=== PATIENT | female | born 1995 | race Caucasian/White ===

== ENCOUNTER 2023-08-04 12:44 | Outpatient (AMB) | payer OTHER, SELFPAY ==
--- NOTE | 2023-08-04 12:52 | MHC.OFFVIS ---
Intake Vital Signs 08/04/23 12:55 Height 5 ft 1 in Weight 125 lb BMI 23.6 BP 108/70 Intake Visit Reasons: Consult Intake Note: LMP 06/04/23 EDC 03/10/24 8w 4d The patient agreed to use of a medical instrument cable fabricator during this encounter. Scribed for MARYCHUY Hubbard by Marcia Dias, medical instrument cable fabricator, on 08/04/2023 at 1:17 pm EST. Allergies amoxicillin Allergy (Unknown, Verified 08/04/23 13:22) Unknown red (food color) Allergy (Unknown, Verified 08/04/23 13:22) Unknown Is last menstrual period known: Yes Last menstrual period: 06/04/23 HPI HPI Comments History of Present Illness Details She is here today for consult with nausea, no vomiting. LMP 06/04/23 EDC 03/10/24 8w 4d. , she has a one year old and a 9 yr. old. Reports having a positive at home test July 13. She did a outside photo/US and was told last week that they only could see a empty gestational sac during the abdominal scan. Denies taking PNV, VB, pelvic pain, medical problems, gestational diabetes or asthma. Normal deliveries, she reports bleeding with her last . She was holding off on the prenatals due to nausea. She is concerned about a plan as her last delivery was very traumatic, her epidural did not work. She reports she has a student with her first delivery and since then her back has not been the same, re: back pain. History of hypotension. [facility] Medical History (Updated 08/04/23 @ 13:12 by Marcia Dias) Nausea Positive test Missed menses Surgical History (Updated 08/04/23 @ 12:59 by LINA Vargas) History of breast lift Social History (Updated 08/04/23 @ 12:59 by LINA Vargas) Alcohol intake: never Patient Tobacco Use Status: Never used Tobacco Sexually active: Yes Sexual orientation: Straight/Heterosexual Gender identity: Female Female Reproductive History Menstrual Duration of menses: 6-7 days Date of last menstrual period: 06/04/23 Total pregnancies: 3 Full term: 2 Number of Living Children: 2 Physical Exam Vital Signs: Last Vital Signs BP 108/70 08/04/23 12:55 BMI result Body Mass Index 23.6 Const General: cooperative, healthy appearing, comfortable, no acute distress, well developed, alert and awake Results AMB Test Urine AMB Test Urine Positive Last Edit by LINA Vargas on 08/04/23 13:06 Results Reviewed Results Reviewed: Laboratory Last Values [facility] Positive 08/04/23 13:06 Assessment & Plan Assessment & Plan (1) Missed menses: Code(s): N92.6 - Irregular menstruation, unspecified Plan: Discussed: US and BHCG ordered. Reviewed when to call for any VB or pelvic pain. Rx for folic acid, and B6. Counseled re: diet and fluid intake. Await lab for follow up, may need serial BHCG's diffential diagnosis: ectopic/early SAB or normally developing . Discussed to call the service here for any emergencies/deliveries to be directed to [facility]. Options for care, incl: care here or at [facility] to meet providers at [facility] Plan discussion at next visit. She is interested in a tubal ligation in the future. All of her questions and concerns were addressed to the best of my ability and shared decision making. She is agreeable to plan of care. (2) Positive test: Code(s): Z32.01 - Encounter for test, result positive (3) Nausea: Code(s): R11.0 - Nausea Plan: B6 vitamins sent to Pharmacy. Orders: Orders US OB limited Today N92.6 - Irregular menstruation, unspecified, Z32.01 - Encounter for test, result positive AMB HCG Urine Test Today Z32.01 - Encounter for test, result positive HCG Quantitative Today N92.6 - Irregular menstruation, unspecified, Z32.01 - Encounter for test, result positive Medications: New pyridoxine (vitamin B6) 25 mg PO TID PRN 90 tabs 1RF nausea and vomiting folic acid 400 mcg PO DAILY 90 tabs 1RF Coding Level of Care Code New Pt Level 3 (39991) Diagnoses Missed menses N92.6 Positive test Z32.01 Nausea R11.0
[2023-08-04 12:55] VITALS: BP 108/70; BMI 23.6
== END 2023-08-04 14:28 | disposition home or self-care (01) ==
PROVIDERS: PCP Internal Medicine; Visit Provider Advanced Practice Midwife
DX: N92.6 Irregular menstruation, unspecified (principal); Z32.01 Encounter for pregnancy test, result positive; R11.0 Nausea
CPT/HCPCS: 99203

== ENCOUNTER → 2023-08-04 12:44 | Outpatient (BNVA) | payer OTHER, SELFPAY | PROVIDERS: PCP Internal Medicine; Visit Provider Advanced Practice Midwife | DX: Z32.01 Encounter for pregnancy test, result positive (principal); N92.6 Irregular menstruation, unspecified; R11.0 Nausea | CPT/HCPCS: 36415; 81025 ==

== ENCOUNTER 2023-08-04 13:30 | Outpatient (REF) | payer OTHER, SELFPAY | END 2023-08-04 13:31 | disposition home or self-care (01) | LOC: HO.LAB 13:30 | PROVIDERS: Visit Provider Advanced Practice Midwife | DX: N92.6 Irregular menstruation, unspecified (principal) | CPT/HCPCS: 36415; 84702 ==

== ENCOUNTER 2023-08-07 14:26 | Outpatient (REF) | payer OTHER, SELFPAY ==
--- NOTE | ~2023-08-07 | US_ITS ---
EXAMINATION: US OBSTETRICAL ULTRASOUND CLINICAL INFORMATION: Positive test Real-time imaging by the internal combustion engine inspector. Findings; Exam does demonstrate an intrauterine gestational sac. There is a yolk sac and the internal combustion engine inspector identifies and echogenicity which may well represent the pole. Measures 0.53 cm. This would correlate to a 6 week 3 day . No heart rate is detected at this time. The right ovary is 4.7 x 2.3 x 2.4 cm. Thick-walled cystic structure which could well represent the corpus luteum. This is not hypervascular in its periphery. This thick-walled cystic area measures 2.4 x 1.6 x 2.3 cm Normal ovarian vascularity. The left ovary is 3.2 x 2 x 2.5 cm. Normal-appearing. There is ovarian vascularity demonstrated. US/US OB pelvic and transvaginal IMPRESSION: There is an intrauterine gestational sac with a yolk sac and what appears to be a pole but no heart rate is detected at this time.. This may correlate to a 6 week 3 day . Correlation recommended clinically and Continued follow-up recommended.
== END 2023-08-07 14:27 | disposition home or self-care (01) ==
LOC: HO.HMGCX 14:26
PROVIDERS: PCP Internal Medicine; Visit Provider Advanced Practice Midwife
DX: O36.80X0 Pregnancy with inconclusive fetal viability, not applicable or unspecified (principal); Z71.2 Person consulting for explanation of examination or test findings
CPT/HCPCS: 76801; 76817; 99212

== ENCOUNTER 2023-08-07 15:34 | Outpatient (AMB) | payer OTHER, SELFPAY ==
--- NOTE | 2023-08-07 15:47 | MHC.OFFVIS ---
Intake Vital Signs 08/07/23 15:50 Height 5 ft 1 in Weight 123 lb 7.342 oz BMI 23.3 BP 110/70 Intake Visit Reasons: ultra sound follow up Intake Note: The patient agreed to use of a medical physics researcher during this encounter. Scribed for MARYCHUY Hubbard by Marcia Dias, medical physics researcher, on 08/07/2023 at 4:00 pm EST. Allergies amoxicillin Allergy (Unknown, Verified 08/04/23 13:22) Unknown red (food color) Allergy (Unknown, Verified 08/04/23 13:22) Unknown HPI HPI Comments History of Present Illness Details She is here to discuss US OB results. Partner at visit, sent directly from US department in [place] this pm. Denies VB or pain with this . Admits nausea. Prior external US at a photo studio that revealed a empty gest. sac ~2wks ago. [facility] Medical History (Updated 08/04/23 @ 13:12 by Marcia Dias) Nausea Positive test Missed menses Surgical History (Updated 08/04/23 @ 12:59 by LINA Vargas) History of breast lift Social History (Updated 08/04/23 @ 12:59 by LINA Vargas) Alcohol intake: never Patient Tobacco Use Status: Never used Tobacco Sexual orientation: Straight/Heterosexual Gender identity: Female Physical Exam Vital Signs: Last Vital Signs BP 110/70 08/07/23 15:50 BMI result Body Mass Index 23.3 Results Reviewed Results Reviewed: EXAMINATION: US OBSTETRICAL ULTRASOUND CLINICAL INFORMATION: Positive test Real-time imaging by the bottle cleaner. Findings; Exam does demonstrate an intrauterine gestational sac. There is a yolk sac and the bottle cleaner identifies and echogenicity which may well represent the pole. Measures 0.53 cm. This would correlate to a 6 week 3 day . No heart rate is detected at this time. The right ovary is 4.7 x 2.3 x 2.4 cm. Thick-walled cystic structure which could well represent the corpus luteum. This is not hypervascular in its periphery. This thick-walled cystic area measures 2.4 x 1.6 x 2.3 cm Normal ovarian vascularity. The left ovary is 3.2 x 2 x 2.5 cm. Normal-appearing. There is ovarian vascularity demonstrated. US/US OB pelvic and transvaginal IMPRESSION: There is an intrauterine gestational sac with a yolk sac and what appears to be a pole but no heart rate is detected at this time.. This may correlate to a 6 week 3 day . Correlation recommended clinically and Continued follow-up recommended. Laboratory Tests 08/04/23 13:29 Beta HCG, Quant [id number] Assessment & Plan Assessment & Plan (1) Encounter to discuss test results: Code(s): Z71.2 - Person consulting for explanation of examination or test findings Plan: Discussed: US OB findings of: There is an intrauterine gestational sac with a yolk sac and what appears to be a pole but no heart rate is detected at this time. This may correlate to a 6 week 3 day . Correlation recommended clinically and Continued follow-up recommended. Recommend weekly OB US to ascertain viability, differential diagnosis: MAB, dating error, too early to determine viability, normal . If experience VB contact office. All of her questions and concerns were addressed to the best of my ability and shared decision making. She is agreeable to plan of care. (2) with uncertain viability: Code(s): O36.80X0 - with inconclusive viability, not applicable or unspecified Orders: Orders US OB limited Today N92.6 - Irregular menstruation, unspecified, O36.80X0 - with inconclusive viability, not applicable or unspecified Coding Level of Care Code Est Pt Level 3 (53646) Diagnoses Encounter to discuss test results Z71.2 with uncertain viability O36.80X0
[2023-08-07 15:50] VITALS: BP 110/70; BMI 23.3
== END 2023-08-07 16:13 | disposition home or self-care (01) ==
PROVIDERS: PCP Internal Medicine; Visit Provider Advanced Practice Midwife
DX: Z71.2 Person consulting for explanation of examination or test findings (principal); O36.80X0 Pregnancy with inconclusive fetal viability, not applicable or unspecified
CPT/HCPCS: 99213

== ENCOUNTER 2023-08-11 12:53 | Outpatient (REF) | payer OTHER, SELFPAY ==
--- NOTE | ~2023-08-11 | US_ITS ---
EXAMINATION: US OBSTETRICAL ULTRASOUND CLINICAL INFORMATION: Irregular menstruation, unspecified COMPARISON: OB ultrasound 08/07/2023 LMP: 06/03/2023. Gestational age by maternal dates is 9 weeks 6 days. Estimated date of delivery by maternal dates is 03/09/2024. TECHNIQUE: Transabdominal and transvaginal imaging were performed FINDINGS: There is abnormally enlarged intrauterine gestational sac with an abnormally enlarged yolk sac. Probable pole without evidence of movement or cardiac activity. There is no significant subchorionic hemorrhage or hematoma. HR: 0 beats per minute. CRL (crown rump length): 0.55 cm (6 weeks 3 days +/- 4 days). DEEPIKA (estimated date of delivery): 04/02/2024 +/- 4 days. MATERNAL ADNEXA: The right maternal ovary measures 2.2 x 1.7 x 1.6 cm. The right ovary contains a 2.3 x 1.6 x 1.2 cm thick-walled cystic structure which likely represents the corpus luteum. The left maternal ovary measures 2.3 x 1.2 x 2.3 cm. The left ovary is normal in appearance. There is no significant maternal adnexal mass. No maternal pelvic ascites. US/US OB pelvic and transvaginal IMPRESSION: 1. Abnormally enlarged intrauterine gestational sac and abnormally enlarged yolk sac. 2. pole without movement or cardiac activity. These findings are consistent with a demise. 3. Based on crown-rump length, estimated gestational age is 6 weeks 3 days, unchanged from 08/07/2023.
== END 2023-08-11 12:54 | disposition home or self-care (01) ==
LOC: HO.HMGCX 12:53
PROVIDERS: PCP Internal Medicine; Visit Provider Advanced Practice Midwife
DX: O36.80X0 Pregnancy with inconclusive fetal viability, not applicable or unspecified (principal); Z3A.09 9 weeks gestation of pregnancy
CPT/HCPCS: 76801; 76817

== ENCOUNTER 2023-08-12 12:38 | Outpatient (AMB) | payer OTHER, SELFPAY ==
--- NOTE | 2023-08-12 12:39 | MHC.OFFVIS ---
Intake Intake Visit Reasons: TV US results Intake Note: cell # [phone] The patient agreed to use of a biomedical field service engineer during this encounter. Scribed for MARYCHUY Hubbard by Marcia Dias, biomedical field service engineer, on 08/12/2023 at 12:40 pm EST. Allergies amoxicillin Allergy (Unknown, Verified 08/04/23 13:22) Unknown red (food color) Allergy (Unknown, Verified 08/04/23 13:22) Unknown HPI HPI Comments History of Present Illness Details Telehealth visit 12:50-13:04. Phone Call due to Covid-19 Pandemic. She presents via phone to discuss OB US results. She does not have any pelvic pain or vaginal bleeding. Admits to crying this week and preparing herself for the result, possible loss. Has support from . [facility] Medical History (Updated 08/04/23 @ 13:12 by Marcia Dias) Nausea Positive test Missed menses Surgical History (Updated 08/04/23 @ 12:59 by LINA Vargas) History of breast lift Social History (Updated 08/04/23 @ 12:59 by LINA Vargas) Alcohol intake: never Patient Tobacco Use Status: Never used Tobacco Sexual orientation: Straight/Heterosexual Gender identity: Female Physical Exam Const Other: weeping during discussion. General: cooperative, healthy appearing, comfortable, no acute distress, well developed, alert and awake Results Reviewed Results Reviewed: EXAMINATION: US OBSTETRICAL ULTRASOUND CLINICAL INFORMATION: Irregular menstruation, unspecified COMPARISON: OB ultrasound 08/07/2023 LMP: 06/03/2023. Gestational age by maternal dates is 9 weeks 6 days. Estimated date of delivery by maternal dates is 03/09/2024. TECHNIQUE: Transabdominal and transvaginal imaging were performed FINDINGS: There is abnormally enlarged intrauterine gestational sac with an abnormally enlarged yolk sac. Probable pole without evidence of movement or cardiac activity. There is no significant subchorionic hemorrhage or hematoma. HR: 0 beats per minute. CRL (crown rump length): 0.55 cm (6 weeks 3 days +/- 4 days). DEEPIKA (estimated date of delivery): 04/02/2024 +/- 4 days. MATERNAL ADNEXA: The right maternal ovary measures 2.2 x 1.7 x 1.6 cm. The right ovary contains a 2.3 x 1.6 x 1.2 cm thick-walled cystic structure which likely represents the corpus luteum. The left maternal ovary measures 2.3 x 1.2 x 2.3 cm. The left ovary is normal in appearance. There is no significant maternal adnexal mass. No maternal pelvic ascites. US/US OB pelvic and transvaginal IMPRESSION: 1. Abnormally enlarged intrauterine gestational sac and abnormally enlarged yolk sac. 2. pole without movement or cardiac activity. These findings are consistent with a demise. 3. Based on crown-rump length, estimated gestational age is 6 weeks 3 days, unchanged from 08/07/2023. Assessment & Plan Assessment & Plan (1) Encounter to discuss test results: Code(s): Z71.2 - Person consulting for explanation of examination or test findings Plan: Discussed: OB US findings of: 1. Abnormally enlarged intrauterine gestational sac and abnormally enlarged yolk sac. 2. pole without movement or cardiac activity. These findings are consistent with a demise. 3. Based on crown-rump length, estimated gestational age is 6 weeks 3 days, unchanged from 08/07/2023. Follow up US 11 days from last, and book a tele-visit for results. Most likely appears to be a failed . Based on criteria, too early on repeat and plan is to review at interval exam. Will see Dr. Jensen for additional consult re: MAB after pending US. Call with any bleeding. Labs: Blood type and screen ordered. All of her questions and concerns were addressed to the best of my ability and shared decision making. She is agreeable to plan of care. Orders: Orders US OB limited 08/18/23 O36.80X0 - with inconclusive viability, not applicable or unspecified Screen Today N92.6 - Irregular menstruation, unspecified, O36.80X0 - with inconclusive viability, not applicable or unspecified Telehealth Telehealth Location of provider rendering services: practice address Location of patient: address on file Patient Identification confirmed using: Name, : Yes Telehealth method: voice only Patient verbally consented to treatment: Yes Patient verbally consented to billing insurance company: Yes Patient informed of any privacy concerns related to visit: Yes Coding Level of Care Code Tele Est Pt Level 2 (53654) Diagnoses Encounter to discuss test results Z71.2
== END 2023-08-12 13:13 | disposition home or self-care (01) ==
LOC: HO.HWS 12:38
PROVIDERS: PCP Internal Medicine; Visit Provider Advanced Practice Midwife
DX: Z71.2 Person consulting for explanation of examination or test findings (principal)
CPT/HCPCS: 99212

== ENCOUNTER → 2023-08-12 12:38 | Outpatient (BNVA) | payer OTHER, SELFPAY | PROVIDERS: PCP Internal Medicine; Visit Provider Advanced Practice Midwife ==

== ENCOUNTER 2023-08-14 09:27 | Outpatient (REF) | payer OTHER, SELFPAY ==
[2023-08-14 10:51] LABS: HCG Quantitative 57104 mIU/mL
== END 2023-08-14 09:28 | disposition home or self-care (01) ==
LOC: HO.LAB 09:27
PROVIDERS: Visit Provider Advanced Practice Midwife
DX: O36.80X0 Pregnancy with inconclusive fetal viability, not applicable or unspecified (principal)
CPT/HCPCS: 36415; 84702; 86850; 86900

== ENCOUNTER 2023-08-19 08:51 | Outpatient (REF) | payer OTHER, SELFPAY ==
[2023-08-19 18:13] LABS: CT PCR NOT DETECTED (Not Detect.); NG PCR NOT DETECTED (Not Detect.)
== END 2023-08-19 08:52 | disposition home or self-care (01) ==
LOC: HO.US 08:51
PROVIDERS: Obstetrics & Gynecology; PCP Internal Medicine; Visit Provider Advanced Practice Midwife
DX: O02.1 Missed abortion (principal)
CPT/HCPCS: 0353U; 76801; 76817; 99212

== ENCOUNTER 2023-08-19 09:44 | Outpatient (AMB) | payer OTHER, SELFPAY ==
--- NOTE | 2023-08-19 09:51 | MHC.OFFVIS ---
Intake Vital Signs 08/19/23 09:53 Height 5 ft 1 in Weight 123 lb 7.342 oz BMI 23.3 BP 116/74 Intake Visit Reasons: US follow up Allergies amoxicillin Allergy (Unknown, Verified 08/20/23 13:) Unknown red (food color) Allergy (Unknown, Verified 08/20/23) Unknown HPI HPI Comments History of Present Illness Details Presenting by LMP at 10 weeks and 6 days of gestation for follow-up of her ultrasound. The patient had an OB ultrasound on 08/11 which showed the following: There is abnormally enlarged intrauterine gestational sac with an abnormally enlarged yolk sac. Probable pole without evidence of movement or cardiac activity. There is no significant subchorionic hemorrhage or hematoma. HR: 0 beats per minute. CRL (crown rump length): 0.55 cm (6 weeks 3 days +/- 4 days). DEEPIKA (estimated date of delivery): 04/02/2024 +/- 4 days. MATERNAL ADNEXA: The right maternal ovary measures 2.2 x 1.7 x 1.6 cm. The right ovary contains a 2.3 x 1.6 x 1.2 cm thick-walled cystic structure which likely represents the corpus luteum. The left maternal ovary measures 2.3 x 1.2 x 2.3 cm. The left ovary is normal in appearance. There is no significant maternal adnexal mass. No maternal pelvic ascites. HCG on 08/04 147,442, repeated on 08/14 dropped to 57,104, blood type A positive Repeat OB ultrasound done today results are not available yet [facility] Medical History Nausea Positive test Missed menses Surgical History History of breast lift Social History Alcohol intake: never Patient Tobacco Use Status: Never used Tobacco Sexual orientation: Straight/Heterosexual Gender identity: Female Review of Systems Const All systems reviewed & are unremarkable except as noted in HPI and below Reports as per HPI and Reports no additional complaints GI Reports no additional complaints Reports no additional complaints Physical Exam Vital Signs: Last Vital Signs BP 116/74 08/19/23 09:53 BMI result Body Mass Index 23.3 Assessment & Plan Assessment & Plan (1) Missed ab: Code(s): O02.1 - Missed Plan: GC/CT taken. Discussed with the patient the result of ultrasound, drop in hCG level pointing toward the diagnosis of missed and no evidence of ectopic , and that the gestation is less than 70 days by ultrasound. Options of treatment were discussed with the patient including medical termination of (including Misoprostol with Mifepristone) vs. suction dilatation and curettage. All the pros, cons, risks and benefits were discussed with the patient. In addition discussed with the patient that compared with uterine aspiration, medication takes longer to complete and requires more active patient participation as the expels outside of a clinical setting. The uterine aspiration procedure for a first-trimester takes place most commonly in one visit, is slightly more effective, and allows for direct assessment of tissue by the clinician. The patient decided to think about it and come back for a follow-up appointment tomorrow with her decision. Instructions given the patient to schedule a follow-up appointment tomorrow. All questions answered, the patient verbalized understanding Orders: Orders CT NG by PCR 08/19/23 O02.1 - Missed Coding Level of Care Code Est Pt Level 3 (02101) Diagnoses Missed ab O02.1
[2023-08-19 09:53] VITALS: BP 116/74; BMI 23.3
== END 2023-08-19 11:13 | disposition home or self-care (01) ==
LOC: HO.HWS 09:44
PROVIDERS: PCP Internal Medicine; Visit Provider Obstetrics & Gynecology
DX: O02.1 Missed abortion (principal)
CPT/HCPCS: 99213

== ENCOUNTER 2023-08-19 10:32 | Outpatient (REF) | payer OTHER, SELFPAY | END 2023-08-19 10:33 | disposition home or self-care (01) | LOC: HO.LNP 10:32 | PROVIDERS: Visit Provider Obstetrics & Gynecology | DX: Z13.89 Encounter for screening for other disorder (principal) ==

== ENCOUNTER 2023-08-20 12:42 | Outpatient (AMB) | payer OTHER, SELFPAY ==
--- NOTE | 2023-08-20 12:52 | MHC.OFFVIS ---
Intake Vital Signs 08/20/23 12:53 Height 5 ft 1 in Weight 126 lb BMI 23.8 BP 100/72 Intake Visit Reasons: ultra sound/lab follow up Intake Note: The patient agreed to use of a medical referral coordinator during this encounter. Scribed for MARYCHUY Hubbard by Marcia Dias medical referral coordinator, on 08/20/2023 at 1:00 pm EST. Director Of Digital Technology Required: No Accompanied by: Mother Allergies amoxicillin Allergy (Unknown, Verified 08/20/23 13:29) Unknown red (food color) Allergy (Unknown, Verified 08/20/23 13:29) Unknown Is last menstrual period known: Yes Last menstrual period: 06/04/23 HPI HPI Comments History of Present Illness Details She is here to discuss OB US results with her mom regarding early demise, MAB. Her mom is concerned that her dates may have been off. Akila is accepting her loss and reports crying, grieving at times this week, she would like her mother to hear the results so she can understand what has happened. COUNT INCLUDES THE [facility] Medical History Nausea Positive test Missed menses Surgical History History of breast lift Social History Alcohol intake: never Patient Tobacco Use Status: Never used Tobacco Sexual orientation: Straight/Heterosexual Gender identity: Female Female Reproductive History Menstrual Date of last menstrual period: 06/04/23 control method: none Total pregnancies: 3 Full term: 2 Number of Living Children: 2 Physical Exam Vital Signs: Last Vital Signs BP 100/72 08/20/23 12:53 BMI result Body Mass Index 23.8 Const General: cooperative, healthy appearing, comfortable, no acute distress, well developed, alert and awake Results Reviewed Results Reviewed: EXAMINATION: US OBSTETRICAL ULTRASOUND CLINICAL INFORMATION: with inconclusive viability COMPARISON: Obstetrical ultrasound 08/11/2023 and 08/07/2023 LMP: 06/03/2023. Gestational age by maternal dates is 11 weeks 0 days. Estimated date of delivery by maternal dates is 03/09/2024. TECHNIQUE: Transabdominal and transvaginal imaging were performed. FINDINGS: There is an abnormally enlarged intrauterine gestational sac. There is a pole without evidence of movement or cardiac activity.? Abnormally enlarged yolk sac. No significant subchorionic hemorrhage or hematoma. HR: 0 beats per minute. CRL (crown rump length): 0.47 cm (6 weeks 2 days +/- 4 days). DEEPIKA (estimated date of delivery): 03/27/2024 +/- 4 days. No interval growth in the fetus since 08/11/2023. MATERNAL ADNEXA: The right maternal ovary measures 3.2 x 1.6 x 2.4 cm. 1.9 x 1.4 x 1.7 cm corpus luteum is seen in the right ovary. The left maternal ovary measures 4.4 x 1.1 x 1.8 cm. The left ovary is normal in appearance. There is no free fluid within the cul-de-sac. US/US OB pelvic and transvaginal IMPRESSION: 1. pole with no heartbeat since 08/11/2023. Estimated gestational age based on LMP is 11 weeks 0 days. Estimated gestational age based on crown-rump length is 6 weeks 2 days with no interval growth since 08/11/2023. 2. These findings are consistent with a demise. Laboratory Tests 08/04/23 08/14/23 13:29 09:35 Beta HCG, Quant [id number] Assessment & Plan Assessment & Plan (1) Encounter to discuss test results: Code(s): Z71.2 - Person consulting for explanation of examination or test findings Plan: Discussed: OB US findings of: 1. pole with no heartbeat since 08/11/2023. Estimated gestational age based on LMP is 11 weeks 0 days. Estimated gestational age based on crown-rump length is 6 weeks 2 days with no interval growth since 08/11/2023. 2. These findings are consistent with a demise. Discussed grief process. Follow up with Dr. Jensen today for further consult/plan of care for MAB. All of her questions and concerns were addressed to the best of my ability and shared decision making. She is agreeable to plan of care. Coding Level of Care Code Est Pt Level 3 (77705) Diagnoses Encounter to discuss test results Z71.2
[2023-08-20 12:53] VITALS: BP 100/72; BMI 23.8
== END 2023-08-20 13:16 | disposition home or self-care (01) ==
PROVIDERS: PCP Internal Medicine; Visit Provider Advanced Practice Midwife
DX: Z71.2 Person consulting for explanation of examination or test findings (principal)
CPT/HCPCS: 99213

== ENCOUNTER 2023-08-20 12:42 | Outpatient (AMB) | payer OTHER, SELFPAY ==
[2023-08-20 13:29] VITALS: BP 102/60; BMI 23.7
--- NOTE | 2023-08-20 13:29 | MHC.OFFVIS ---
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 The patient had an OB ultrasound on 08/11 which showed the following: There is abnormally enlarged intrauterine gestational sac with an abnormally enlarged yolk sac. Probable pole without evidence of movement or cardiac activity. There is no significant subchorionic hemorrhage or hematoma. HR: 0 beats per minute. CRL (crown rump length): 0.55 cm (6 weeks 3 days +/- 4 days). DEEPIKA (estimated date of delivery): 04/02/2024 +/- 4 days. MATERNAL ADNEXA: The right maternal ovary measures 2.2 x 1.7 x 1.6 cm. The right ovary contains a 2.3 x 1.6 x 1.2 cm thick-walled cystic structure which likely represents the corpus luteum. The left maternal ovary measures 2.3 x 1.2 x 2.3 cm. The left ovary is normal in appearance. There is no significant maternal adnexal mass. No maternal pelvic ascites. HCG on 08/04 147,442, repeated on 08/14 dropped to 57,104, blood type A positive Repeat OB ultrasound done yesterday showed the following: IMPRESSION: 1. pole with no heartbeat since 08/11/2023. Estimated gestational age based on LMP is 11 weeks 0 days. Estimated gestational age based on crown-rump length is 6 weeks 2 days with no interval growth since 08/11/2023. 2. These findings are consistent with a demise. [facility] Medical History Nausea Positive test Missed menses Surgical History History of breast lift Social History Alcohol intake: never Patient Tobacco Use Status: Never used Tobacco Sexual orientation: Straight/Heterosexual Gender identity: Female Review of Systems Const All systems reviewed & are unremarkable except as noted in HPI and below Reports as per HPI and Reports no additional complaints GI Reports no additional complaints Reports no additional complaints Physical Exam Vital Signs: Last Vital Signs BP 102/60 08/20/23 13:29 BMI result Body Mass Index 23.7 Assessment & Plan Assessment & Plan (1) Missed ab: Code(s): O02.1 - Missed Plan: Discussed with the patient the result of ultrasound showing missed and hCG levels . Options of treatment were discussed with the patient including medical termination of (including Misoprostol with Mifepristone) vs. suction dilatation and curettage. All the pros, cons, risks and benefits were discussed with the patient. In addition discussed with the patient that compared with uterine aspiration, medication takes longer to complete and requires more active patient participation as the expels outside of a clinical setting. The uterine aspiration procedure for a first-trimester takes place most commonly in one visit, is slightly more effective, and allows for direct assessment of tissue by the clinician. The patient decided to go ahead with misoprostol / Mifepristone. Discussed with the patient the risk of uterine rupture with Misoprostol. In addition discussed with the patient the Misoprostol, have been associated with the development of congenital abnormalities including but not limited to scalp or skull defects, cranial nerve palsies (Moebius syndrome), and limb deficiencies (eg, equinovarus). The rise in uterine pressure related to uterine contractions or vascular spasm may be the mechanism contributing to these teratogenic effects. After choosing medical termination of , the steps of the procedure were reviewed, and the patient confirmed that she is willing and able to complete each step. Comprehensive counseling about the expected experience and symptoms and recovery was done. In addition, the patient was counseled that if the medication is unsuccessful, a surgical procedure, suction D&C will be required to complete the procedure, as an ongoing will have increased risk of severe abnormalities. All questions answered, the patient verbalized understanding agreed with the plan signed the consent. Explained to the patient that after Mifepristone is taken, but before taking Misoprostol patients do not begin to have vaginal bleeding or pelvic cramping. In most cases, if these symptoms are present, the patient should still take the misoprostol since mifepristone alone is not highly effective; the exception is that misoprostol should not be taken if expulsion of the gestation has been confirmed through an emergency visit. Approximately 1 to 5 percent of patients will expel the conceptus after a single dose of mifepristone only, without Misoprostol. Typical symptoms and the experience of passing the gestational tissue were reviewed with the patient. Concerning symptoms to call for include but are not limited to: severe abdominal pain that persists after the tissue has passed or if pain persists and no bleeding or tissue has passed. Patients should also call if bleeding does not decrease after tissue is passed or if they are soaking two maxi pads per hour for two consecutive hours. Explained to the patient that after taking Misoprostol, the patient is likely to abort within the next several hours. The proportion of patients who abort within four hours after taking vaginal misoprostol is 93%. The patient signed Mifepristone agreement, and was handed a pill of 200 mg Mifepristone lot number [id number] and a copy of the instructions were given to the patient. Instructions given the patient to schedule a 2 week follow-up appointment Coding Level of Care Code Est Pt Level 3 (37513) Diagnoses Missed ab O02.1
== END 2023-08-20 14:18 | disposition home or self-care (01) ==
PROVIDERS: PCP Internal Medicine; Visit Provider Obstetrics & Gynecology
DX: O02.1 Missed abortion (principal)
CPT/HCPCS: 99213

== ENCOUNTER → 2023-08-20 12:42 | Outpatient (BNVA) | payer OTHER, SELFPAY | PROVIDERS: PCP Internal Medicine; Visit Provider Advanced Practice Midwife | DX: Z71.2 Person consulting for explanation of examination or test findings (principal); O02.1 Missed abortion | CPT/HCPCS: 99212 ==

== ENCOUNTER 2023-08-21 10:54 | Outpatient (AMB) | payer OTHER, SELFPAY ==
[2023-08-21 11:16] VITALS: BP 102/60; BMI 23.7
--- NOTE | 2023-08-21 11:16 | MHC.OFFVIS ---
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 Information Interpreted: non-clinical & clinical [place]: [place]re Present Accompanied by: Significant Other Allergies amoxicillin Allergy (Unknown, Verified 08/21/23 11:17) Unknown red (food color) Allergy (Unknown, Verified 08/21/23 11:17) Unknown Is last menstrual period known: Yes Last menstrual period: 09/13/20 Post menopausal: No Patient : No Do you need a note to return to daycare/school/sports/work: Yes (for surgery on thursday) HPI HPI Comments History of Present Illness Details Presenting requesting suction D&C for missed , the patient is not interested in proceeding with medical termination with misoprostol and mifeprestone. No pelvic cramping no pain no other symptoms. GC/CT done recently negative. Blood type A positive PFS Medical History Nausea Positive test Missed menses Surgical History History of breast lift Social History Alcohol intake: never Patient Tobacco Use Status: Never used Tobacco Sexual orientation: Straight/Heterosexual Gender identity: Female Female Reproductive History Menstrual Date of last menstrual period: 09/13/20 Total pregnancies: 2 Full term: 2 Review of Systems Card Reports as per HPI and Reports no additional complaints Resp Reports as per HPI and Reports no additional complaints GI Reports as per HPI and Reports no additional complaints Reports as per HPI Physical Exam Vital Signs: Last Vital Signs BP 102/60 08/21/23 11:16 BMI result Body Mass Index 23.7 Const General: cooperative, healthy appearing and comfortable Chest Chest palpation & inspection: normal inspection of the chest and normal palpation of entire chest wall Breast/axilla inspection: normal inspection of the breasts and normal inspection of the axillae Breast/axilla palpation: normal palpation of the breasts, normal palpation of the axillae and no axillary lymphadenopathy Resp Effort & Inspection: normal respiratory effort Auscultation: clear to auscultation bilaterally Percussion: percussion normal Cardio Palpation: normal PMI Rate: regular rate Rhythm: regular rhythm Heart sounds: no murmurs and no rubs Peripheral pulses: Peripheral pulses 2+ throughout GI Inspection: Yes normal to inspection Palpation (GI): Soft to palpation, nontender, no guarding, not rigid and No hepatosplenomegaly present Percussion: Yes normal to percussion Auscultation: normal bowel sounds Rectal Exam - Female: deferred Assessment & Plan Assessment & Plan (1) Missed ab: Code(s): O02.1 - Missed Plan: Discussed with the patient the result of the ultrasound showing missed A/B, the options of the treatment discussed with the patient including, expectant management, medical treatment , suction D&C, all pros, cons, risks and benefits were discussed with the patient and the patient the decided to go ahead with Suction D&C. so a more detailed discussion about the procedure was carried on with the patient including the technique, risks including but not limited to : bleeding, infection, uterine perforation, injury to blood vessels, bowels, ureters, bladder, possible need for blood transfusion with all its risks ( HIV, Hep b or C, anaphylaxis reactions), possible need for laparoscopy, laparotomy, or hysterectomy, possible , thromboembolic events, possibility of a negative impact on future fertility because of scar tissue development inside the uterus; alternatives of this option were discussed with the patient including but not limited to, medical termination of or doing nothing. The patient decided to go ahead with Suction D&C and signed the consent. All questions answered, the patient verbalized understanding and agreed with the plan. Doxycycline 200 mg p.o. preop given to the patient. Ultrasound notified. Instructions given the patient to schedule a 2 week postoperative appointment. This note was generated with a voice recognition program. Some errors may have been overlooked during the review of this note. Sometimes these errors may affect the content or meaning of a given sentence. Coding Level of Care Code Est Pt Level 3 (88337) Diagnoses Missed ab O02.1
== END 2023-08-21 12:25 | disposition home or self-care (01) ==
LOC: HO.HWS 10:54
PROVIDERS: PCP Internal Medicine; Visit Provider Obstetrics & Gynecology
DX: O02.1 Missed abortion (principal)
CPT/HCPCS: 99213

== ENCOUNTER → 2023-08-21 12:04 | Day surgery (SDC) | payer OTHER, SELFPAY ==
--- NOTE | 2023-08-21 12:08 | MHC.SHP ---
Pre-Procedural Eval Section A Date of Service: 08/21/23 The patient is an INPATIENT: No Changes since office visit: No Cold of Flu in the past 2 weeks, No New Medical Problems, No Changes in Medication and No Patient answered all questions The History & Physical has been completed within 30 days and I have reviewed it.: Yes Section B Chief Complaint: Missed Allergies: Allergies Allergy/AdvReac Type Severity Reaction Status Date / Time amoxicillin Allergy Unknown Unknown Verified 08/21/23 11:17 red (food color) Allergy Unknown Unknown Verified 08/21/23 11:17 Plan Diagnosis/Plan: Unchanged I have reviewed the history and physical and performed a pertinent physical examination on my patient. No changes have occurred unless specified. Time Spent With Patient Time: Total time managing care of this patient today ____ minutes.
--- NOTE | 2023-08-21 13:38 | HO.ANESPROP2 ---
PMFSH Active Problems Active Problems: All Active Problems (Updated 08/19/23 @ 10:26 by Naveen Jensen MD) Missed ab (Acute) Nausea (Acute) Positive test (Acute) Missed menses (Acute) Past Medical History Medical History Nausea Positive test Missed menses Surgical History Surgical History History of breast lift History of Problems with Anesthesia: No Social History Social History Alcohol intake: never Patient Tobacco Use Status: Never used Tobacco Sexual orientation: Straight/Heterosexual Gender identity: Female Meds Allergies Allergy/AdvReac Type Severity Reaction Status Date / Time amoxicillin Allergy Unknown Unknown Verified 08/21/23 11:17 red (food color) Allergy Unknown Unknown Verified 08/21/23 11:17 Active Medications: Current Medications Doxycycline Monohydrate (Doxycycline Monohydrate 100 Mg Capsule) 200 mg PO ONCE ONE Stop: 08/21/23 14:01 Lactated Ringer's (Lr) 1,000 mls @ 80 mls/hr IVCONT .[id number] Last Admin: 08/21/23 13:27 Dose: 80 mls/hr Exam Exam Date and Time: August 21, 2023 1338 Airway Mallampati Class: II TM Dist: >3cm Neck ROM: Full Loose/Missing/Broken Teeth: No Heart: RRR Lungs: CTA Assessment and Plan Assessment Anesthesia Assessment: Anesthesia Plan Discussed Final Anesthetic Review History of Problems with Anesthesia: No NPO: Yes ASA Class: II Final Preanesthetic Review: Meds/Allgs Chart Reviewed, Consent Obtained/Reviewed and Anes Risks/Benef Reviewed Patient Risk: Low Procedure Risk: Low Anesthetic Plan Anesthetic Plan: GA Disposition: Standard PACU
[2023-08-21 13:42] VITALS: BP 127/81; PULSE 98; RESP 18; TEMP 36.6; O2SAT 100
[2023-08-21 13:49] VITALS: BMI 23.6
--- NOTE | 2023-08-21 14:13 | PC.NURSE ---
Patient was demanding that her IV be removed so that she could leave immediately. Dr. Jensen came to patient's bedside at request of the author and spoke with the patient at length regarding medications that she has at home that she was instructed to take initially prior to scheduling the surgery. Dr. Jensen educated patient at length regarding her physical/mental health and support system. Decision was made to cancel procedure today. IV removed. Antibiotics were scanned, but were never given because this is when patient began expressing desire to leave. Partner Anish in waiting room where patient was brought. Patient aware to f/u with Dr. Jensen or ER as educated/needed.
== END ==
PROVIDERS: PCP Internal Medicine; Visit Provider Obstetrics & Gynecology
DX: O02.1 Missed abortion (principal); Z53.29 Procedure and treatment not carried out because of patient's decision for other reasons; Z88.0 Allergy status to penicillin
CPT/HCPCS: 86850; 86900; 86901; 99212